=== PATIENT | male | born 1975 | race Caucasian/White ===

== ENCOUNTER 2017-10-22 09:04 | Emergency (ER) | payer BC ==
[2017-10-22 09:24] VITALS: RESP 16
--- NOTE | 2017-10-22 09:27 | ED ---
General Adult HPI - General Chief complaint: Extremity Injury, Upper Stated complaint: fall, left shoulder Time Seen by Provider: 10/22/17 09:04 Source: patient, EMS, RN notes reviewed Mode of arrival: EMS Limitations: no limitations - History of Present Illness Initial comments: This is a 41-year-old male who presents emergency Department with a left shoulder dislocation. Patient states this happened in both shoulders multiple times. Patient states he reached out with his arm today when the shoulder dislocated. Patient states it feels exactly the same as ones dislocated in the past. Patient states she supposed to have surgery but he has avoided that because he doesn't want to miss work. - Related Data Home Medications Medication Instructions Recorded Confirmed Lisdexamfetamine Dimesylate 50 mg PO QAM 10/22/17 10/22/17 [Vyvanse] traZODone HCL 50 mg PO HS PRN 10/22/17 10/22/17 Previous Rx's Medication Instructions Recorded Hydrocodone/Acetaminophen [[place]mer 1 each PO Q4HR PRN #20 tab 10/22/17 5-325] Ibuprofen [Motrin] 600 mg PO Q6HR PRN #20 tab 10/22/17 Allergies Allergy/AdvReac Type Severity Reaction Status Date / Time No Known Allergies Allergy Verified 10/22/17 09:36 Review of Systems ROS Statement: Those systems with pertinent positive or pertinent negative responses have been documented in the HPI. ROS Other: All systems not noted in ROS Statement are negative. Past Medical History Past Medical History: No Reported History History of Any Multi-Drug Resistant Organisms: None Reported Past Surgical History: Hernia Repair, Tonsillectomy Past Psychological History: No Psychological Hx Reported Smoking Status: Current some day smoker Past Alcohol Use History: None Reported Past Drug Use History: None Reported General Exam - General Exam Comments Initial Comments: GENERAL Patient is well-developed and well-nourished. Patient is in moderate distress. EYES Patient's pupils are equal and round. Extraocular motion is intact SKIN Unremarkable NEURO The patient is alert and oriented 3 PYSCH Patient has normal interpersonal interactions. MUSCULOSKELETAL Left shoulder appears to be dislocated there is a deformity at the shoulder where the head of the humerus should be. Patient has significant pain with movement. Limitations: no limitations Course Vital Signs 10/22/17 10/22/17 10/22/17 09:08 09:22 09:24 Temperature 97.8 F Pulse Rate 71 64 56 L Respiratory 18 16 16 Rate Blood Pressure 158/78 158/78 146/91 O2 Sat by Pulse 98 94 L 100 Oximetry 10/22/17 10/22/17 10/22/17 09:25 09:27 09:32 Temperature Pulse Rate 64 82 83 Respiratory 16 16 16 Rate Blood Pressure 146/84 154/86 140/83 O2 Sat by Pulse 100 100 100 Oximetry Procedures - Orthopedic Joint Reduction Joint #1 Consent Obtained: verbal consent Time Out Performed: Yes Joint Reduction Location: shoulder Shoulder Technique Used (if applicable): traction/counter-traction Technique Used: traction/counter-traction Post-Reduction Neuro Exam: intact Post-Reduction Vascular Exam: intact Post Reduction X-Ray Obtained: Yes Post Reduction X-Ray Results: reduced - Procedural Sedation Procedural Sedation Start Time: 09:20 Procedural Sedation Stop Time: 09:45 Indications: fracture/dislocation reduction ASA Class: I Preparation: compliance monitor applied, pulse oximeter, capnometry used, supplemental O2 applied IV Etomidate Dose (mgs): 15 Complications: none Patient Tolerated Procedure: well Medical Decision Making - Medical Decision Making x-ray of the left shoulder shows an anterior shoulder dislocation. Disposition Clinical Impression: Dislocation of left shoulder joint Disposition: HOME SELF-CARE Condition: Good Instructions: Shoulder Dislocation (ED) Prescriptions: Hydrocodone/Acetaminophen [C[place]mer 5-325] 1 each PO Q4HR PRN #20 tab PRN Reason: Pain Ibuprofen [Motrin] 600 mg PO Q6HR PRN #20 tab PRN Reason: For pain Referrals: None,Stated [Primary Care Provider] - 1-2 days Time of Disposition: 09:50
--- NOTE | 2017-10-22 09:36 | XR ---
EXAMINATION TYPE: XR shoulder limited LT DATE OF EXAM: 10/22/2017 CLINICAL HISTORY: Left shoulder pain after injury this a.m. TECHNIQUE: Two views of the left shoulder are obtained. COMPARISON: None. FINDINGS: There is no acute fracture evident in the left shoulder. There is anterior inferior displa cement of the left humeral head indicating anterior dislocation. The humeral head does not overlap wi th the glenoid on all views. The acromioclavicular appears within normal limits. The visualized ribs are intact and unremarkable. IMPRESSION: Anterior dislocation of the left shoulder. No fracture identified.
--- NOTE | 2017-10-22 09:51 | XR ---
Left shoulder HISTORY: Post reduction Single frontal view of the left shoulder correlated prior left shoulder same date earlier time There is been interval reduction in this single view. IMPRESSION: Post reduction left shoulder
[2017-10-22 09:58] VITALS: BP 131/75; PULSE 76; TEMP 98.2
== END 2017-10-22 09:59 | disposition home or self-care (01) ==
LOC: EC 09:04
DX: S43.005A Unspecified dislocation of left shoulder joint, initial encounter (principal); F17.200 Nicotine dependence, unspecified, uncomplicated; Z79.899 Other long term (current) drug therapy; X58.XXXA Exposure to other specified factors, initial encounter
CPT/HCPCS: 23650; 99152; 99153; 99284

== ENCOUNTER → 2017-11-03 | Outpatient (CLI) | payer BC ==
--- NOTE | 2017-11-03 23:16 | MR ---
EXAMINATION TYPE: MR shoulder LT wo con DATE OF EXAM: 11/03/2017 COMPARISON: NONE HISTORY: Left shoulder [ain with Limited ROM SINCE 2007 TECHNIQUE: Multiplanar, multisequence imaging of the left shoulder is performed without contrast. FINDINGS: The biceps tendon is intact. The glenoid bobby appear intact. Subscapularis tendon is intact. There i s a 2 cm area of increased signal on the T2 images in the superior aspect of the humeral head near th e greater tuberosity. The supraspinatus tendon appears intact. There is spurring at the AC joint. The re is no significant subacromial impingement. I see no fracture line. IMPRESSION: No evidence of rotator cuff tear. There is edema in the humeral head as above consistent with a bone bruise.
== END | disposition home or self-care (01) ==
LOC: RADMRIMAIN 14:36
PROVIDERS: ATTEND Orthopaedic Surgery
DX: R60.9 Edema, unspecified (principal)

== ENCOUNTER 2021-07-25 10:17 | Emergency (ER) | payer BC ==
[2021-07-25 10:22] VITALS: TEMP 97.8
[2021-07-25] MEDS ORDERED: SODIUM CHLORIDE 0.9% 500 ML 500 ML IV STA (10:36)
[2021-07-25] MEDS ORDERED: HYDROmorphone 1 MG/ML 1 ML SYRINGE IVP STA (10:36)
--- NOTE | 2021-07-25 10:58 | XR ---
EXAMINATION TYPE: XR shoulder limited LT DATE OF EXAM: 07/25/2021 COMPARISON: 10/22/2017 HISTORY: Pain TECHNIQUE: Two views are submitted. FINDINGS: There is anterior dislocation of the humeral head. No definite acute fracture. Mild hypertrophic valdez ge of the AC joint. IMPRESSION: 1. Anterior dislocation of the shoulder
[2021-07-25] MEDS: PROPOFOL 10 MG/ML 20 ML VIAL IV STA ×2 (11:04→11:07)
--- NOTE | 2021-07-25 11:21 | ED ---
Upper Extremity HPI <Vini Prince - Last Filed: 07/25/21 11:47> - General Source: patient, EMS Mode of arrival: EMS Limitations: no limitations <Shubham Willams - Last Filed: 07/25/21 11:51> - General Chief Complaint: Extremity Injury, Upper Stated Complaint: L shoulder injury Time Seen by Provider: 07/25/21 10:24 - History of Present Illness Initial Comments: 45-year-old male present emergency department via EMS chief complaint left shoulder dislocation. Patient states he stretched his arm upward and felt a pop out. He states she's had this happen the past. Patient did receive fentanyl by EMS prior arrival, states his is still in severe pain. Patient denies any falls no head injury no other complaints. (Shubham Willams) - Related Data Home Medications Medication Instructions Recorded Confirmed Lisdexamfetamine Dimesylate 50 mg PO QAM 10/22/17 10/22/17 [Vyvanse] Atorvastatin [Lipitor] 10 mg PO HS 07/25/21 07/25/21 Multivitamins, Thera [Multivitamin 1 tab PO DAILY 07/25/21 07/25/21 (formulary)] Allergies Allergy/AdvReac Type Severity Reaction Status Date / Time No Known Allergies Allergy Verified 07/25/21 11:16 Review of Systems ROS Other: All systems not noted in ROS Statement are negative. <Vini Prince - Last Filed: 07/25/21 11:47> ROS Other: All systems not noted in ROS Statement are negative. <Shubham Willams - Last Filed: 07/25/21 11:51> ROS Statement: Those systems with pertinent positive or pertinent negative responses have been documented in the HPI. Past Medical History Past Medical History: No Reported History History of Any Multi-Drug Resistant Organisms: None Reported Past Surgical History: Hernia Repair, Tonsillectomy Past Psychological History: No Psychological Hx Reported Smoking Status: Current every day smoker Past Alcohol Use History: None Reported Past Drug Use History: None Reported <Shubham Willams - Last Filed: 07/25/21 11:51> General Exam Limitations: no limitations General appearance: alert, in no apparent distress Head exam: Present: atraumatic, normocephalic, normal inspection Neck exam: Present: normal inspection. Absent: tenderness, meningismus, lymphadenopathy Respiratory exam: Present: normal lung sounds bilaterally. Absent: respiratory distress, wheezes, rales, rhonchi, stridor Cardiovascular Exam: Present: regular rate, normal rhythm, normal heart sounds. Absent: systolic murmur, diastolic murmur, rubs, gallop, clicks Extremities exam: Present: other (Left shoulder obvious dislocation, there is a sulcus noted, neurovascular intact) <Shubham Willams - Last Filed: 07/25/21 11:51> Course Vital Signs 07/25/21 07/25/21 07/25/21 10:18 11:03 11:08 Temperature 97.8 F Pulse Rate 66 77 92 Respiratory 22 20 12 Rate Blood Pressure 137/91 144/124 122/75 O2 Sat by Pulse 97 98 Oximetry 07/25/21 07/25/21 07/25/21 11:13 11:18 11:33 Temperature Pulse Rate 87 81 81 Respiratory 18 18 16 Rate Blood Pressure 101/65 124/87 107/63 O2 Sat by Pulse 96 95 95 Oximetry Procedures - Procedural Sedation Procedural Sedation Start Time: 11:03 Procedural Sedation Stop Time: 11:25 Indications: fracture/dislocation reduction ASA Class: I Mallampati Airway Score: 2 Preparation: arborist climber applied, pulse oximeter, supplemental O2 applied IV Propofol Dose (mgs): 120 Complications: none Patient Tolerated Procedure: well <Vini Prince - Last Filed: 07/25/21 11:47> - [place] Protocol (Time Out) Procedure Performed:: closed reduction of left shoulder dislocation Performing Provider: Vini Prince Nurse: Cierra Gross Respiratory Therapist: Yue Prieto Patient Identification (2 identifiers required): Chart, Verbal, Name, Birthdate Patient/Legal [place] has Confirmed: Identity, Site, Procedure, Consent Site: left shoulder Site Marked: Not Applicable - Orthopedic Joint Reduction Joint #1 Consent Obtained: written consent Side: left Joint Reduction Location: shoulder Analgesia: procedural sedation Shoulder Technique Used (if applicable): traction/counter-traction, external rotation Post-Reduction Neuro Exam: intact Post-Reduction Vascular Exam: intact Post Reduction X-Ray Obtained: Yes Post Reduction X-Ray Results: reduced Patient Tolerated Procedure: well, no complications <Shubham Willams - Last Filed: 07/25/21 11:51> Medical Decision Making <Shubham Willams - Last Filed: 07/25/21 11:51> - Medical Decision Making Patient did have successful reduction of the left shoulder dislocation with conscious sedation with Dr. Prince. Patient discharged in stable condition in a sling. (Shubham Willams) Disposition <Vini Prince - Last Filed: 07/25/21 11:47> Is patient prescribed a controlled substance at d/c from ED?: No Time of Disposition: 11:51 <Shubham Willams - Last Filed: 07/25/21 11:51> Clinical Impression: Recurrent dislocation, left shoulder Disposition: HOME SELF-CARE Condition: Stable Instructions (If sedation given, give patient instructions): Shoulder Dislocation (ED), Moderate Sedation (ED) Additional Instructions: Please return to the Emergency Department if symptoms worsen or any other concerns. Referrals: None,Stated [Primary Care Provider] - 1-2 days Renato Bragg DO [Doctor of Osteopathic Medicine] - 1-2 days
--- NOTE | 2021-07-25 11:33 | XR ---
EXAMINATION TYPE: XR shoulder limited LT DATE OF EXAM: 07/25/2021 COMPARISON: NONE HISTORY: Postreduction TECHNIQUE: One view is are submitted. FINDINGS: Anatomic alignment now noted post reduction. No acute fracture. IMPRESSION: 1. Anatomic alignment postreduction
[2021-07-25 11:58] VITALS: BP 104/69; PULSE 80; RESP 18
== END 2021-07-25 12:04 | disposition home or self-care (01) ==
LOC: EC 10:17
DX: S43.005A Unspecified dislocation of left shoulder joint, initial encounter (principal); F17.200 Nicotine dependence, unspecified, uncomplicated; Z90.89 Acquired absence of other organs; X50.0XXA Overexertion from strenuous movement or load, initial encounter
CPT/HCPCS: 99283; 96374; 96361; 23650; 99152; 73020; J1170; J2704

== ENCOUNTER → 2021-12-12 | Outpatient (CLI) | payer BC, OTHER ==
--- NOTE | 2021-12-13 04:39 | MR ---
EXAMINATION TYPE: MR shoulder LT wo con DATE OF EXAM: 12/12/2021 COMPARISON: 11/03/2017 HISTORY: Left shoulder pain, dislocation Jul 2021. Multiplanar multi echo imaging of the left shoulder without contrast. The glenoid bobby appear intact. Subscapularis tendon is intact. There is some degenerative spurring at the AC joint. The supraspinatus tendon is intact. No retraction. The infraspinatus tendon is intac t. No evidence of a fracture. The biceps tendon is intact. IMPRESSION: No evidence of rotator cuff tear. There is clearing of the large bone bruise at the greater tuberosit y of the humerus compared to old exam. There is moderate hypertrophic spurring at the AC joint and mi ld subacromial impingement without change.
--- NOTE | 2021-12-13 04:41 | MR ---
EXAMINATION TYPE: MR shoulder RT wo con DATE OF EXAM: 12/12/2021 COMPARISON: None HISTORY: Right shoulder pain. Multi planar multi echo imaging of the right shoulder without contrast. The supraspinatus tendon is intact. There is moderate spurring at the AC joint and minimal subacromia l impingement. Glenoid bobby appear intact. Subscapularis tendon is intact. Biceps tendon appears nor mal. No evidence of a fracture. The infraspinatus tendon is intact. No evidence of focal bone destruc tion. IMPRESSION: No evidence of rotator cuff tear. Mild spurring at the AC joint and mild subacromial impingement. No fracture.
== END | disposition home or self-care (01) ==
LOC: RADMRIMAIN 14:26
DX: M25.812 Other specified joint disorders, left shoulder (principal); M25.811 Other specified joint disorders, right shoulder; M25.712 Osteophyte, left shoulder; M25.711 Osteophyte, right shoulder

== ENCOUNTER 2023-05-06 01:35 | Emergency (ER) | payer OTHER ==
[2023-05-06] MEDS ORDERED: PROPOFOL 10 MG/ML 20 ML VIAL IV ONE (02:20)
[2023-05-06 02:43] VITALS: RESP 18
--- NOTE | 2023-05-06 02:52 | ED ---
General Adult HPI - General Chief complaint: Extremity Injury, Upper Stated complaint: Left shoulder Injury Time Seen by Provider: 05/06/23 01:56 Source: patient Mode of arrival: wheelchair Limitations: no limitations - History of Present Illness Initial comments: This is a 47-year-old male with no past medical history presents emergency department for a left shoulder dislocation. The patient has a history of multiple shoulder dislocations and stated that he was sleeping and stated that he twitched slightly and noted that his left shoulder dislocated. The patient stated this happened 1 hour prior to arrival. The patient was in significant pain due to the left shoulder dislocation and stated this is similar to his previous dislocations. The patient denied any other acute pain or trauma at this time. - Related Data Home Medications Medication Instructions Recorded Confirmed Lisdexamfetamine Dimesylate 50 mg PO DAILY 10/22/17 07/25/21 [Vyvanse] Atorvastatin [Lipitor] 10 mg PO HS 07/25/21 07/25/21 Multivitamins, Thera [Multivitamin 1 tab PO DAILY 07/25/21 07/25/21 (formulary)] Allergies Allergy/AdvReac Type Severity Reaction Status Date / Time No Known Allergies Allergy Verified 07/25/21 11:16 Review of Systems ROS Statement: Those systems with pertinent positive or pertinent negative responses have been documented in the HPI. ROS Other: All systems not noted in ROS Statement are negative. Past Medical History Past Medical History: No Reported History History of Any Multi-Drug Resistant Organisms: None Reported Past Surgical History: Hernia Repair, Tonsillectomy Past Psychological History: No Psychological Hx Reported Smoking Status: Current every day smoker Past Alcohol Use History: None Reported Past Drug Use History: None Reported General Exam Limitations: no limitations General appearance: alert, in no apparent distress, in distress (2/2 left shoulder pain) Head exam: Present: atraumatic, normocephalic, normal inspection Eye exam: Present: normal appearance, PERRL Pupils: Present: normal accommodation ENT exam: Present: normal exam, normal oropharynx, mucous membranes moist Neck exam: Present: normal inspection, full ROM Respiratory exam: Present: normal lung sounds bilaterally Cardiovascular Exam: Present: regular rate, normal rhythm, normal heart sounds GI/Abdominal exam: Present: soft, normal bowel sounds Extremities exam: Present: normal inspection, full ROM, other (Left shoulder deformity noted with decreased ROM 2/2 pain) Back exam: Present: normal inspection Neurological exam: Present: alert, oriented X3, CN II-XII intact Psychiatric exam: Present: normal affect, normal mood Skin exam: Present: warm, dry Course Vital Signs 05/06/23 05/06/23 05/06/23 01:38 02:27 02:28 Temperature 97.9 F Pulse Rate 62 77 85 Respiratory 20 20 20 Rate Blood Pressure 116/79 133/96 127/87 O2 Sat by Pulse 100 97 98 Oximetry 05/06/23 05/06/23 05/06/23 02:32 02:47 03:02 Temperature Pulse Rate 88 77 80 Respiratory 18 18 18 Rate Blood Pressure 128/90 112/92 98/67 O2 Sat by Pulse 98 98 97 Oximetry 05/06/23 05/06/23 03:18 03:48 Temperature Pulse Rate 78 74 Respiratory 18 18 Rate Blood Pressure 106/75 106/78 O2 Sat by Pulse 99 98 Oximetry Procedures - [place] Protocol (Time Out) Procedure Performed:: Left shoulder reduction Performing Provider: Bogdan Jacobson Nurse: Elly Segovia Respiratory Therapist: Anderson Xavier Patient Identification (2 identifiers required): Chart, Verbal, Arm Band, Name Site: left shoulder Final Confirmation: Confirmed w/Provider - Orthopedic Joint Reduction Joint #1 Consent Obtained: verbal consent, written consent Side: left Joint Reduction Location: shoulder Analgesia: procedural sedation Shoulder Technique Used (if applicable): traction/counter-traction Post-Reduction Neuro Exam: intact Post-Reduction Vascular Exam: intact Post Reduction X-Ray Obtained: Yes Post Reduction X-Ray Results: reduced Splint Applied: Yes Patient Tolerated Procedure: well - Procedural Sedation *Procedural Sedation Start Time: 02:28 *Procedural Sedation Stop Time: 02:32 *Indications: fracture/dislocation reduction *Previous Adverse Reaction to Anesthesia/Sedation?: No *ASA Class: I *Mallampati Airway Score: 1 *Time of Last PO Intake: 19:00 Preparation: secured entrance monitor applied, pulse oximeter, capnometry used, supplemental O2 applied, suction/airway equipment at bedside, IV secured IV Propofol Dose (mgs): 80 Complications: none Patient Tolerated Procedure: well Medical Decision Making - Medical Decision Making Was pt. sent in by a medical professional or institution (, PA, WOOD GRINDER OPERATOR, urgent care, hospital, or fci...) When possible be specific @ -No Did you speak to anyone other than the patient for history (EMS, parent, family, police, friend...)? What history was obtained from this source @ -No Did you review nursing and triage notes (agree or disagree)? Why? @ -I reviewed and agree with nursing and triage notes Were old charts reviewed (outside hosp., previous admission, EMS record, old EKG, old radiological studies, urgent care reports/EKG's, fci records)? Report findings @ -No old charts were reviewed Differential Diagnosis (chest pain, altered mental status, abdominal pain women, abdominal pain men, vaginal bleeding, weakness, fever, dyspnea, syncope, headache, dizziness, GI bleed, back pain, seizure, CVA, palpatations, mental health)? @ -Shoulder dislocation, arm fracture, contusion EKG interpreted by me (3pts min.). @ -None X-rays interpreted by me (1pt min.). @ -. X-ray of the left shoulder was initially obtained on arrival and was reviewed by myself showing a dislocation. Postreduction film was also obtained and was interpreted by myself showing reduction CT interpreted by me (1pt min.). @ -None done U/S interpreted by me (1pt. min.). @ -None done What testing was considered but not performed or refused? (CT, X-rays, U/S, labs)? Why? @ -None What meds were considered but not given or refused? Why? @ -None Did you discuss the management of the patient with other professionals (professionals i.e. , PA, WOOD GRINDER OPERATOR, lab, RT, psych nurse, social media strategist, tax evaluator, teacher, supply officer, catalytic case operator)? Give summary @ -No Was smoking cessation discussed for >3mins.? @ -No Was critical care preformed (if so, how long)? @ -No Were there social determinants of health that impacted care today? How? (Homelessness, low income, unemployed, alcoholism, drug addiction, transportation, low edu. Level, literacy, decrease access to med. care, care home, rehab)? @ -No Was there de-escalation of care discussed even if they declined (Discuss DNR or withdrawal of care, Hospice)? DNR status @ -No What co-morbidities impacted this encounter? (DM, HTN, Smoking, COPD, CAD, Cancer, CVA, ARF, Chemo, Hep., AIDS, mental health diagnosis, sleep apnea, morbid obesity)? @ -None Was patient admitted / discharged? Hospital course, mention meds given and route, prescriptions, significant lab abnormalities, going to OR and other pertinent info. @ -The patient was seen and evaluated emergency department. On physical exam, the patient was resting in bed in distress secondary to left shoulder pain. Vital signs were stable. X-ray was obtained initially on arrival and showed dislocation of the left shoulder. The patient did undergo conscious sedation and the left shoulder was reduced successfully. Her postreduction film was obtained and showed reduction. The patient remained stable and was observed in the emergency department for 2 hours following the sedation and remained within normal limits. The patient was stable for discharge home with his and was told to follow-up with orthopedic surgery for continued evaluation. The patient was agreeable to this and all his questions were answered. The patient was discharged home in stable condition with his and children. Undiagnosed new problem with uncertain prognosis? @ -No Drug Therapy requiring intensive monitoring for toxicity (Heparin, Nitro, Insulin, Cardizem)? @ -No Were any procedures done? @ -Yes, see above Diagnosis/symptom? @ -Left shoulder dislocation, reduced Acute, or Chronic, or Acute on Chronic? @ -Acute Uncomplicated (without systemic symptoms) or Complicated (systemic symptoms)? @ -Uncomplicated Side effects of treatment? @ -No Exacerbation, Progression, or Severe Exacerbation? @ -No Poses a threat to life or bodily function? How? (Chest pain, [place], MA, pneumonia, PE, COPD, DKA, ARF, appy, cholecystitis, CVA, Diverticulitis, Homicidal, Suicidal, threat to staff... and all critical care pts) @ -No Disposition Clinical Impression: Shoulder dislocation Disposition: HOME SELF-CARE Condition: Stable Instructions (If sedation given, give patient instructions): Shoulder Dislocation (ED), Moderate Sedation (ED) Is patient prescribed a controlled substance at d/c from ED?: No Referrals: [facility],Clinic [Primary Care Provider] - 1-2 days Paola Ray DO [Doctor of Osteopathic Medicine] - 1-2 days Time of Disposition: 04:30
[2023-05-06 04:37] VITALS: BP 108/49; PULSE 81; TEMP 98
--- NOTE | 2023-05-06 05:49 | XR ---
EXAMINATION TYPE: XR shoulder complete LT DATE OF EXAM: 05/06/2023 2:01 AM INDICATION: Patient age:Male; 47 years old; Reason for study: deformity; COMPARISON: 07/25/2021 TECHNIQUE: The left shoulder was examined in AP, internally rotated and scapular Y projections. FINDINGS/IMPRESSION: Anterior inferior shoulder dislocation. No evidence of fracture.
--- NOTE | 2023-05-06 06:07 | XR ---
EXAMINATION TYPE: XR shoulder limited LT DATE OF EXAM: 05/06/2023 3:38 AM INDICATION: Patient age:Male; 47 years old; Reason for study: post reduction; COMPARISON: 05/06/2023 prior TECHNIQUE: The left shoulder was examined in frontal projection. FINDINGS/IMPRESSION: Interval reduction of prior left shoulder dislocation. No evidence of fracture.
== END 2023-05-06 04:37 | disposition home or self-care (01) ==
LOC: EC 01:35
DX: S43.005A Unspecified dislocation of left shoulder joint, initial encounter (principal); F17.200 Nicotine dependence, unspecified, uncomplicated; X58.XXXA Exposure to other specified factors, initial encounter
CPT/HCPCS: 99283; 73030; 73020; 23650; J2704; 96374

== ENCOUNTER 2024-11-17 07:44 | Emergency (ER) | payer OTHER ==
[2024-11-17 07:48] VITALS: RESP 18; TEMP 97.5
[2024-11-17] MEDS: HYDROmorphone 1 MG/ML 1 ML SYRINGE IVP STA (08:13)
--- NOTE | 2024-11-17 08:17 | ED ---
Extremity Problem HPI - General Chief complaint: Extremity Problem,Nontraumatic Stated complaint: Dislocated left shoulder Time Seen by Provider: 11/17/24 07:50 Source: patient Limitations: no limitations - History of Present Illness Initial comments: 48-year-old male presents emergency department with left shoulder dislocation. Patient has had issues with his bilateral shoulders and has dislocated several times. Reports that he had surgery on his right shoulder but has yet to have surgery on his left. This morning the patient was in bed and states he reached to adjust his pillow when he felt a pop. Patient realized that his shoulder had come out. He is having immense pain in his left shoulder. He is right-hand dominant. Patient did not take anything for pain before coming in. He follows with an orthopedic surgeon in [place] through the [place]. Denies any trauma. No other alleviating, precipitating modifying factors - Related Data Home Medications Medication Instructions Recorded Confirmed Lisdexamfetamine Dimesylate 50 mg PO DAILY 10/22/17 11/01/24 [Vyvanse] Atorvastatin [Lipitor] 10 mg PO HS 07/25/21 11/01/24 Allergies Allergy/AdvReac Type Severity Reaction Status Date / Time No Known Allergies Allergy Verified 11/17/24 07:48 Review of Systems ROS Statement: Those systems with pertinent positive or pertinent negative responses have been documented in the HPI. ROS Other: All systems not noted in ROS Statement are negative. Past Medical History Past Medical History: Hyperlipidemia History of Any Multi-Drug Resistant Organisms: None Reported Past Surgical History: Hernia Repair, Orthopedic Surgery, Tonsillectomy Additional Past Surgical History / Comment(s): Bilat. cataract removal, Rt. shoulder surgery Past Anesthesia/Blood Transfusion Reactions: No Reported Reaction Past Psychological History: ADD/ADHD Smoking Status: Former smoker Past Alcohol Use History: Occasional Past Drug Use History: None Reported - Past Family History Father Family Medical History: Cancer Mother Family Medical History: Cancer General Exam Limitations: no limitations General appearance: alert, other (In pain) Head exam: Present: atraumatic, normocephalic, normal inspection Eye exam: Present: normal appearance, PERRL, EOMI. Absent: scleral icterus, conjunctival injection, periorbital swelling ENT exam: Present: normal exam, mucous membranes moist Neck exam: Present: normal inspection. Absent: tenderness, meningismus, lymphadenopathy Cardiovascular Exam: Present: regular rate, normal rhythm, normal heart sounds. Absent: systolic murmur, diastolic murmur, rubs, gallop, clicks GI/Abdominal exam: Present: soft, normal bowel sounds. Absent: distended, tenderness, guarding, rebound, rigid Extremities exam: Present: other (Obvious deformity to the left shoulder. 2+ DP and PT pulses. Intact sensation over the medial, lateral dorsal upper extremity) Course Vital Signs 11/17/24 11/17/24 11/17/24 07:46 09:00 09:02 Temperature 97.5 F L Pulse Rate 55 L 78 85 Respiratory 18 18 18 Rate Blood Pressure 133/89 147/99 133/104 O2 Sat by Pulse 98 99 98 Oximetry 11/17/24 11/17/24 11/17/24 09:05 09:10 09:25 Temperature Pulse Rate 87 75 73 Respiratory 18 18 18 Rate Blood Pressure 135/92 123/91 115/83 O2 Sat by Pulse 98 97 98 Oximetry 11/17/24 09:43 Temperature Pulse Rate 73 Respiratory 18 Rate Blood Pressure 110/76 O2 Sat by Pulse 98 Oximetry Procedures - Orthopedic Joint Reduction Joint #1 Consent Obtained: written consent Side: left Joint Reduction Location: shoulder Analgesia: procedural sedation Shoulder Technique Used (if applicable): traction/counter-traction Technique Used: direct manipulation Post-Reduction Neuro Exam: intact Post-Reduction Vascular Exam: intact Post Reduction X-Ray Obtained: Yes Post Reduction X-Ray Results: reduced Splint Applied: Yes Patient Tolerated Procedure: well - Procedural Sedation *Procedural Sedation Start Time: 09:00 *Procedural Sedation Stop Time: 09:35 *Risks,benefits, and alternative therapies discussed?: Yes *Patient indicates understanding of risk/benefit discussion?: Yes *Indications: fracture/dislocation reduction *Previous Adverse Reaction to Anesthesia/Sedation?: No *ASA Class: I *Mallampati Airway Score: 1 *Time of Last PO Intake: 22:00 Preparation: emergency room clinician applied, pulse oximeter, capnometry used, supp lemental O2 applied, reversal agents at bedside, suction/airway equipment at bedside IV Propofol Dose (mgs): 120 Complications: none Patient Tolerated Procedure: well, no complications Medical Decision Making - Medical Decision Making Was pt. sent in by a medical professional or institution (, PA, TRAFFIC CONTROL TECHNICIAN, urgent care, hospital, or usp...) When possible be specific @ -No Did you speak to anyone other than the patient for history (EMS, parent, family, police, friend...)? What history was obtained from this source @ -No Did you review nursing and triage notes (agree or disagree)? Why? @ -I reviewed and agree with nursing and triage notes Were old charts reviewed (outside hosp., previous admission, EMS record, old EKG, old radiological studies, urgent care reports/EKG's, usp records)? Report findings @ -No old charts were reviewed Differential Diagnosis (chest pain, altered mental status, abdominal pain women, abdominal pain men, vaginal bleeding, weakness, fever, dyspnea, syncope, headache, dizziness, GI bleed, back pain, seizure, CVA, palpatations, mental health, musculoskeletal)? @ -Differential Musculoskeletal Muscular strain, contusion, ligament sprain, fracture, arthritis, septic arthritis, bursitis, cellulitis, muscle spasm, nerve compression, DVT, arterial occlusion, herpes zoster, electrolyte abnormality, tumor.... This is not meant to be in all inclusive list EKG interpreted by me (3pts min.). @ -Not done X-rays interpreted by me (1pt min.). @ -Yes, which demonstrates shoulder dislocation with reduction CT interpreted by me (1pt min.). @ -None done U/S interpreted by me (1pt. min.). @ -None done What testing was considered but not performed or refused? (CT, X-rays, U/S, labs)? Why? @ -None What meds were considered but not given or refused? Why? @ -None Did you discuss the management of the patient with other professionals (professionals i.e. , PA, TRAFFIC CONTROL TECHNICIAN, lab, RT, psych nurse, manager social work, planer operator, teacher, property and supply officer, case technician)? Give summary @ -No Was smoking cessation discussed for >3mins.? @ -No Was critical care preformed (if so, how long)? @ -No Were there social determinants of health that impacted care today? How? (Homelessness, low income, unemployed, alcoholism, drug addiction, transportation, low edu. Level, literacy, decrease access to med. care, alf, rehab)? @ -No Was there de-escalation of care discussed even if they declined (Discuss DNR or withdrawal of care, Hospice)? DNR status @ -No What co-morbidities impacted this encounter? (DM, HTN, Smoking, COPD, CAD, Cancer, CVA, ARF, Chemo, Hep., AIDS, mental health diagnosis, sleep apnea, morbid obesity)? @ -None Was patient admitted / discharged? Hospital course, mention meds given and route, prescriptions, significant lab abnormalities, going to OR and other pertinent info. @ -Upon arrival patient seen and evaluated in bed 9. Thorough history and physical exam was performed. IV access was established. Patient was given 5 mg of Valium and 1 mg Dilaudid. X-rays performed which demonstrates shoulder dislocation. I did attempt to put this back into place however patient is not tolerating it. I did discuss procedural sedation for which the patient wanted. Patient received conscious sedation with 140 mg of propofol. There was reduction of the left shoulder dislocation. Postreduction x-ray was performed and demonstrates relocation. Patient is monitored for an hour. He will be discharged home. He is instructed not to drive for 24 hours. Follow-up with orthopedics for further management of his repetitive dislocations and return for any new or worsening symptoms Undiagnosed new problem with uncertain prognosis? @ -No Drug Therapy requiring intensive monitoring for toxicity (Heparin, Nitro, Insulin, Cardizem)? @ -No Were any procedures done? @ -No Diagnosis/symptom? @ -Acute left shoulder dislocation Acute, or Chronic, or Acute on Chronic? @ -Acute Uncomplicated (without systemic symptoms) or Complicated (systemic symptoms)? @ -Complicated Side effects of treatment? @ -No Exacerbation, Progression, or Severe Exacerbation? @ -No Poses a threat to life or bodily function? How? (Chest pain, USA, MD, pneumonia, PE, COPD, DKA, ARF, appy, cholecystitis, CVA, Diverticulitis, Homicidal, Suicidal, threat to staff... and all critical care pts) @ -No Disposition Clinical Impression: Recurrent dislocation, left shoulder Disposition: HOME SELF-CARE Condition: Stable Instructions (If sedation given, give patient instructions): Shoulder Dislocation (ED), Procedural Sedation (ED) Additional Instructions: Please wear the sling for the next 48 hours with minimal use of the left arm. No driving for 24 hours. Follow-up with your orthopedic surgeon for possible surgical options and return for any new or worsening symptoms Is patient prescribed a controlled substance at d/c from ED?: No Referrals: Shubham Payne DO [Primary Care Provider] - 1-2 days Time of Disposition: 09:19
--- NOTE | 2024-11-17 08:35 | XR ---
EXAMINATION TYPE: XR shoulder limited LT DATE OF EXAM: 11/17/2024 8:14 AM COMPARISON: None. CLINICAL INDICATION: Male, 48 years old with history of dislocation, pain TECHNIQUE: 2 view(s) obtained. FINDINGS: There is dislocation of the humeral head from the glenoid in the AP projection not as well appreciate d on the lateral view. No acute fractures are evident. Acromioclavicular junction is normal. IMPRESSION: 1. Dislocation of the left shoulder. [facility], , 11/17/2024 8:33 AM
[2024-11-17] MEDS: PROPOFOL 10 MG/ML 20 ML VIAL IV ONE (09:00)
--- NOTE | 2024-11-17 09:16 | XR ---
EXAMINATION TYPE: XR shoulder limited LT DATE OF EXAM: 11/17/2024 9:11 AM COMPARISON: None. CLINICAL INDICATION: Male, 48 years old with history of post reduction, pain TECHNIQUE: AP view(s) obtained. FINDINGS: Humeral head articulates with the glenoid projection. Acromioclavicular junction is normal. No acute fractures post reduction are evident. IMPRESSION: 1. Reduction of previous dislocation left shoulder. No acute fractures identified [facility], , 11/17/2024 9:14 AM
[2024-11-17 09:30] VITALS: PULSE 73
[2024-11-17 09:57] VITALS: BP 110/76
== END 2024-11-17 09:59 | disposition home or self-care (01) ==
LOC: EC 07:44
DX: M24.412 Recurrent dislocation, left shoulder (principal); Z87.891 Personal history of nicotine dependence
CPT/HCPCS: 73020; 99283; 96374; 96375; 23650; J3360; J1171; J2704